=== PATIENT | female | born 1965 | race Caucasian/White ===

== ENCOUNTER → 2017-01-04 | Day surgery (SDC) | payer MEDICARE, OTHER ==
[~2017-01-04] VITALS: Ht 167.6 cm; Wt 89.8 kg
[~2017-01-04] MED LIST: ASPIRIN EC81 MG PO; GLUCOPHAGE 500500 MG PO; LIPITOR TAB 2020 MG PO; METOPROLOL SUCC25 MG PO; NORVASC 5 MG TAB5 MG PO; TRADJENTA5 MG PO
== END | disposition home or self-care (01) ==
LOC: OR 08:30
PROVIDERS: Surgery
PROC: 0DJD8ZZ Inspection of Lower Intestinal Tract, Via Natural or Artificial Opening Endoscopic (ICD-10-PCS; principal; 2017-01-04 10:55)
DX: Z12.11 Encounter for screening for malignant neoplasm of colon (principal); G56.00 Carpal tunnel syndrome, unspecified upper limb; I10 Essential (primary) hypertension; E11.9 Type 2 diabetes mellitus without complications; J45.909 Unspecified asthma, uncomplicated; K21.9 Gastro-esophageal reflux disease without esophagitis; M19.90 Unspecified osteoarthritis, unspecified site; F17.210 Nicotine dependence, cigarettes, uncomplicated; Z79.899 Other long term (current) drug therapy; Z86.73 Personal history of transient ischemic attack (TIA), and cerebral infarction without residual deficits; Z86.69 Personal history of other diseases of the nervous system and sense organs
CPT/HCPCS: 82962; J7120

== ENCOUNTER → 2020-09-05 | Outpatient (CLI) | payer MEDICARE, OTHER ==
[~2020-09-05] MED LIST changes: +ANORO ELLIPTA1 EACH INH; +ATORVASTATIN CA80 MG PO; +BREO ELLIPTA 11 EACH INH; +BUTALB-ACETAMI1 EAC1 PO; +CLARITIN10 MG PO; +CLOPIDOGREL75 MG PO; +COREG 12.5MG12.5 MG PO; +COREG 25MG TAB25 MG PO; +CRESTOR10 MG PO; +CYMBALTA60 MG PO; +ELIQUIS 5 MG TAB5 MG PO; +FLONASE 0.05% N16 GM; +GABAPENTIN300 MG PO; +GLUCOTROL 10 MG10 MG PO; +HUMALOG100 UNIT/1 SC; +IBUPROFEN600 MG PO; +IMDUR ER TAB 3030 MG PO; +ISOSORBIDE MONO60 MG PO; +LANTUS SOL100 UNIT/1 SQ; +LASIX TAB 20 MG20 MG PO; +METFORMIN HCL500 MG PO; +METHOCARBAMOL500 MG PO; +NEURONTIN800 MG PO; +NITROSTAT0.4 MG SL; +NORVASC10 MG PO; +NYSTOP60 GM TP; +OMEPRAZOLE20 MG PO; +OMNICEF 300 MG300 MG PO; +PERCOCET 5/325 T1 EA PO; +PLAVIX 75 MG TA75 MG PO; +PRINIVIL20 MG PO; +PROAIR HFA8.5 GM INH; +PROTONIX 40 MG40 M1 PO; +ROPINIROLE HCL1 MG PO; +TRESIBA FL100 UNIT/1 SQ; +TRESIBA100 UNIT/1 SC; +TRULICITY0.75 MG/0. SQ; +VOLTAREN ARTHRI20 GM TOP; +ZETIA 10 MG TAB10 MG PO; +ZOVIRAX 800 MG800 MG PO
== END ==
LOC: EXRD 08:38
DX: R60.0 Localized edema (principal)
CPT/HCPCS: 93971

== ENCOUNTER → 2020-09-30 | Outpatient (CLI) | payer MEDICARE, OTHER | LOC: OPSV2 11:30 | DX: Z01.818 Encounter for other preprocedural examination (principal) ==

== ENCOUNTER → 2020-10-15 | Outpatient (CLI) | payer MEDICARE, OTHER | LOC: KOH-I 11:09 | DX: M54.5 Low back pain (principal); M51.36 Other intervertebral disc degeneration, lumbar region; M51.37 Other intervertebral disc degeneration, lumbosacral region | CPT/HCPCS: 72100 ==

== ENCOUNTER 2020-12-24 12:21 | Observation (INO) | payer MEDICARE, OTHER ==
[~2020-12-24] VITALS: Ht 167.6 cm; Wt 104.3 kg
[~2020-12-24 12:21] MED LIST changes: -BUTALB-ACETAMI1 EAC1 PO; -CLARITIN10 MG PO; -CYMBALTA60 MG PO; -FLONASE 0.05% N16 GM; -HUMALOG100 UNIT/1 SC; -METHOCARBAMOL500 MG PO; -NEURONTIN800 MG PO; -NYSTOP60 GM TP; -TRESIBA100 UNIT/1 SC; -VOLTAREN ARTHRI20 GM TOP
[2020-12-24 13:34] LABS: HEMOGLOBIN 12.7 gm/dl (12.3-15.3); RED BLOOD COUNT 4.69 M/UL (4.00-5.10); WHITE BLOOD COUNT 11.7 K/UL (4.5-11.0)
[2020-12-24 14:05] LABS: BUN/CREATININE RATIO 14 (0-10)
[2020-12-24] MEDS ORDERED: NYSTOP60 GM TP (14:06)
[2020-12-24] MEDS ORDERED: NEURONTIN800 MG PO (15:43)
[2020-12-24] MEDS ORDERED: NITROSTAT0.4 MG SL (15:48)
[2020-12-24] MEDS ORDERED: METHOCARBAMOL500 MG PO (16:36)
[2020-12-24] MEDS ORDERED: TRESIBA100 UNIT/1 SC (16:37)
[2020-12-24] MEDS ORDERED: HUMALOG100 UNIT/1 SC (16:37)
[2020-12-24] MEDS ORDERED: FLONASE 0.05% N16 GM (16:38)
[2020-12-24] MEDS ORDERED: CYMBALTA60 MG PO (16:39)
[2020-12-24] MEDS ORDERED: CLARITIN10 MG PO (16:39)
[2020-12-24] MEDS ORDERED: VOLTAREN ARTHRI20 GM TOP (16:41)
[2020-12-25 01:46] LABS: HEMOGLOBIN 11.8 gm/dl (12.3-15.3); RED BLOOD COUNT 4.44 M/UL (4.00-5.10); WHITE BLOOD COUNT 12.5 K/UL (4.5-11.0)
[2020-12-25 02:08] LABS: BUN/CREATININE RATIO 15 (0-10)
[2020-12-26 06:42] LABS: RED BLOOD COUNT 4.2 M/UL (4.00-5.10)
[2020-12-26 07:25] LABS: BUN/CREATININE RATIO 8 (0-10)
[2020-12-26] MEDS ORDERED: BUTALB-ACETAMI1 EAC1 PO (09:52)
== END 2020-12-26 12:29 | disposition home or self-care (01) ==
LOC: ER1 12:21 → CDU 15:14 → MED SURG 4 15:14
PROVIDERS: Physician Assistant; ADMIT Internal Medicine
DX: R07.89 Other chest pain (principal); I25.10 Atherosclerotic heart disease of native coronary artery without angina pectoris; R51.9 Headache, unspecified; I25.2 Old myocardial infarction; I49.01 Ventricular fibrillation; G47.33 Obstructive sleep apnea (adult) (pediatric); E78.5 Hyperlipidemia, unspecified; K21.9 Gastro-esophageal reflux disease without esophagitis; J44.9 Chronic obstructive pulmonary disease, unspecified; E03.9 Hypothyroidism, unspecified; I12.9 Hypertensive chronic kidney disease with stage 1 through stage 4 chronic kidney disease, or unspecified chronic kidney disease; E11.22 Type 2 diabetes mellitus with diabetic chronic kidney disease; N18.9 Chronic kidney disease, unspecified; E66.9 Obesity, unspecified; E11.51 Type 2 diabetes mellitus with diabetic peripheral angiopathy without gangrene; Z68.37 Body mass index [BMI] 37.0-37.9, adult; Z20.822 Contact with and (suspected) exposure to COVID-19; Z95.5 Presence of coronary angioplasty implant and graft; Z79.4 Long term (current) use of insulin; Z79.82 Long term (current) use of aspirin; Z79.02 Long term (current) use of antithrombotics/antiplatelets; Z79.01 Long term (current) use of anticoagulants; Z79.899 Other long term (current) drug therapy; Z91.19 Patient's noncompliance with other medical treatment and regimen; Z88.0 Allergy status to penicillin; Z88.8 Allergy status to other drugs, medicaments and biological substances; Z87.891 Personal history of nicotine dependence; Z85.42 Personal history of malignant neoplasm of other parts of uterus; Z90.710 Acquired absence of both cervix and uterus
CPT/HCPCS: 36415; 70450; 71045; 80048; 80053; 81001; 82550; 82553; 82962; 83690; 83735; 83874; 84484; 85025; 85027; 85379; 85652; 93005; 96372; 96374; 96375; 96376; 99285; G0378; J1200; J1650; J1885; J2270; J2765; U0002

== ENCOUNTER 2021-01-05 12:09 | Emergency (ER) | payer MEDICARE, OTHER ==
[~2021-01-05 12:09] MED LIST changes: +BUTALB-ACETAMI1 EAC1 PO; +CLARITIN10 MG PO; +CYMBALTA60 MG PO; +FLONASE 0.05% N16 GM; +HUMALOG100 UNIT/1 SC; +METHOCARBAMOL500 MG PO; +NEURONTIN800 MG PO; +NYSTOP60 GM TP; +TRESIBA100 UNIT/1 SC; +VOLTAREN ARTHRI20 GM TOP
[2021-01-05 13:42] LABS: HEMOGLOBIN 11.8 gm/dl (12.3-15.3); RED BLOOD COUNT 4.35 M/UL (4.00-5.10); WHITE BLOOD COUNT 10.5 K/UL (4.5-11.0)
[2021-01-05 14:15] LABS: BUN/CREATININE RATIO 11 (0-10)
== END 2021-01-05 17:05 | disposition short-term general hospital (02) ==
LOC: ER1 12:09
PROVIDERS: Physician Assistant Medical
DX: K92.2 Gastrointestinal hemorrhage, unspecified (principal); I25.2 Old myocardial infarction; E11.9 Type 2 diabetes mellitus without complications; I11.9 Hypertensive heart disease without heart failure
CPT/HCPCS: 80053; 81001; 82272; 83605; 83690; 85025; 86850; 86900; 86901; 87086; 99284; J2405; J7120; Q9967

== ENCOUNTER 2021-03-21 19:57 | Emergency (ER) | payer MEDICARE, OTHER ==
[2021-03-21 21:37] LABS: HEMOGLOBIN 12.3 gm/dl (12.3-15.3); RED BLOOD COUNT 4.94 M/UL (4.00-5.10)
[2021-03-21 22:03] LABS: BUN/CREATININE RATIO 18 (0-10)
== END 2021-03-22 13:00 | disposition home or self-care (01) ==
LOC: ER1 19:57 → CDU 03-22 04:04
PROVIDERS: Physician Assistant
DX: R07.89 Other chest pain (principal); I25.10 Atherosclerotic heart disease of native coronary artery without angina pectoris; I12.9 Hypertensive chronic kidney disease with stage 1 through stage 4 chronic kidney disease, or unspecified chronic kidney disease; N18.30 Chronic kidney disease, stage 3 unspecified; E11.22 Type 2 diabetes mellitus with diabetic chronic kidney disease; E11.51 Type 2 diabetes mellitus with diabetic peripheral angiopathy without gangrene; E78.5 Hyperlipidemia, unspecified; G47.33 Obstructive sleep apnea (adult) (pediatric); J44.9 Chronic obstructive pulmonary disease, unspecified; I25.2 Old myocardial infarction; K21.9 Gastro-esophageal reflux disease without esophagitis; F17.210 Nicotine dependence, cigarettes, uncomplicated; Z79.01 Long term (current) use of anticoagulants; Z79.82 Long term (current) use of aspirin; Z79.4 Long term (current) use of insulin; Z79.899 Other long term (current) drug therapy; Z88.0 Allergy status to penicillin; Z88.8 Allergy status to other drugs, medicaments and biological substances; Z20.822 Contact with and (suspected) exposure to COVID-19; Z82.49 Family history of ischemic heart disease and other diseases of the circulatory system; Z95.5 Presence of coronary angioplasty implant and graft; Z90.710 Acquired absence of both cervix and uterus; Z85.42 Personal history of malignant neoplasm of other parts of uterus; Z86.79 Personal history of other diseases of the circulatory system
CPT/HCPCS: 71045; 80053; 82550; 82553; 83874; 83880; 84484; 85025; 85610; 85730; 93005; 99285; G0378; U0002

== ENCOUNTER 2021-05-25 13:23 | Emergency (ER) | payer MEDICARE, OTHER ==
[2021-05-25 14:37] LABS: HEMOGLOBIN 10.7 gm/dl (12.3-15.3); RED BLOOD COUNT 4.05 M/UL (4.00-5.10); WHITE BLOOD COUNT 9.6 K/UL (4.5-11.0)
[2021-05-25 15:09] LABS: BUN/CREATININE RATIO 8 (0-10)
[2021-05-25] MEDS ORDERED: ZITHROMAX250 MG PO (15:58)
== END 2021-05-25 16:32 | disposition home or self-care (01) ==
LOC: ER1 13:23
PROVIDERS: Student in an Organized Health Care Education/Training Program
DX: J40 Bronchitis, not specified as acute or chronic (principal); R04.0 Epistaxis
CPT/HCPCS: 71045; 80048; 82550; 82553; 83874; 84484; 85025; 99283

== ENCOUNTER 2021-05-26 14:37 | Emergency (ER) | payer MEDICARE, OTHER ==
[~2021-05-26 14:37] MED LIST changes: +ZITHROMAX250 MG PO
== END 2021-05-26 16:45 | disposition home or self-care (01) ==
LOC: ER1 14:37
DX: R04.0 Epistaxis (principal); I25.10 Atherosclerotic heart disease of native coronary artery without angina pectoris; Z79.01 Long term (current) use of anticoagulants; Z88.8 Allergy status to other drugs, medicaments and biological substances
CPT/HCPCS: 99283

== ENCOUNTER 2021-08-08 12:16 | Emergency (ER) | payer MEDICARE, OTHER ==
[2021-08-08] MEDS ORDERED: MOBIC15 MG PO (13:26)
== END 2021-08-08 13:53 | disposition home or self-care (01) ==
LOC: ER1 12:16
DX: S93.402A Sprain of unspecified ligament of left ankle, initial encounter (principal); S93.602A Unspecified sprain of left foot, initial encounter; E11.9 Type 2 diabetes mellitus without complications; I10 Essential (primary) hypertension; J45.909 Unspecified asthma, uncomplicated; Z91.041 Radiographic dye allergy status; X50.1XXA Overexertion from prolonged static or awkward postures, initial encounter; Y93.9 Activity, unspecified; Y92.009 Unspecified place in unspecified non-institutional (private) residence as the place of occurrence of the external cause
CPT/HCPCS: 73610; 73630; 99283

== ENCOUNTER 2022-05-09 14:58 | Emergency (ER) | payer MEDICARE, OTHER ==
[~2022-05-09 14:58] MED LIST changes: +MOBIC15 MG PO
[2022-05-09 15:54] LABS: HEMOGLOBIN 13.5 gm/dl (12.3-15.3); RED BLOOD COUNT 4.82 M/UL (4.00-5.10); WHITE BLOOD COUNT 10.8 K/UL (4.5-11.0)
[2022-05-09 17:06] LABS: BUN/CREATININE RATIO 22 (0-10)
== END 2022-05-09 22:42 | disposition home or self-care (01) ==
LOC: ER1 14:58
PROVIDERS: Physician Assistant
DX: R42 Dizziness and giddiness (principal); I11.9 Hypertensive heart disease without heart failure; Z79.4 Long term (current) use of insulin; Z20.822 Contact with and (suspected) exposure to COVID-19; Z88.8 Allergy status to other drugs, medicaments and biological substances
CPT/HCPCS: 70450; 70496; 70498; 71045; 80053; 81001; 82550; 82553; 83690; 84484; 85025; 93005; 96374; 99284; J2765; Q9967; U0002